=== PATIENT | male | born 1945 ===

== ENCOUNTER 2024-07-04 06:11 | Day surgery (SDC) | payer OTHER, SELFPAY ==
[2024-06-29 09:21] VITALS: BMI 41.0
[2024-06-29 09:56] LABS: % Basophils 1.3 % (0-2); % Eosinophils 2.8 % (0-6); % Immature Granulocytes 0.3 % (0-0.5); % Lymphocytes 30.6 % (20.5-51.1); % Monocytes 11.8 % (1.7-9.3); % Neutrophils 53.2 % (42.2-75.2); Absolute Basophils 0.1 10^3/uL (0-0.2); Absolute Eosinophils 0.2 10^3/uL (0-0.7); Absolute Lymphocytes 2.4 10^3/uL (1.2-3.4); Absolute Monocytes 0.9 10^3/uL (0.1-0.6); Absolute Neutrophils 4.1 10^3/uL (1.4-6.5); Hematocrit 40.5 % (39.0-52.0); Hemoglobin 13.6 g/dL (13.0-18.0); Mean Corp Hgb Conc. 33.6 g/dL (33.0-37.0); Mean Corpuscular Hgb 34.4 pg (27.0-31.0); Mean Corpuscular Volume 102.5 fL (80.0-94.0); Mean Platelet Volume 11.2 fL (7.4-10.4); Nucleated Red Blood Cells % 0 % (-); Platelet Count 172 10^3/uL (130-400); Red Blood Cell Count 3.95 10^6/uL (4.70-6.10); Red Cell Dist. Width 13.6 % (11.5-14.5); White Blood Cell Count 7.8 10^3/uL (4.8-10.8)
[2024-06-29 10:08] LABS: INR 0.96; PT 13.1 Sec (11.4-14.6)
[2024-06-29 11:02] LABS: Blood Urea Nitrogen 35 mg/dl (9-20); Calcium 10.3 mg/dl (8.4-10.2); Carbon Dioxide 22 mmol/L (22-30); Chloride 110 mmol/L (98-107); Estimated Creatinine Clearance 50 ml/min; Glucose 72 mg/dl (70-99); Potassium 4.7 mmol/L (3.5-5.1); Sodium 144 mmol/L (135-145); eGFR 46.48
--- NOTE | 2024-06-29 15:42 | PTCARENOTE ---
Patients 06/29 Creat-1.5; GFR-46.48, Saundra @ Dr. Brannon office notified of same
[2024-07-04] VITALS (23 sets, daily range): BP systolic 129–163; BP diastolic 47–126
--- NOTE | 2024-07-04 07:32 | W.SUR.PREOP ---
Pre-Operative Surgical Note
-
I have examined this patient prior to the performance of the scheduled procedure.
The patient's condition is unchanged from the time of the current History and
Physical and the patient is able to undergo the scheduled procedure.
[2024-07-04 07:35] LABS: Glucose - Point of Care 125 mg/dl (70-99)
[2024-07-04] MEDS: DILAUDID 0.25 MG IV (09:59)
[2024-07-04] MEDS: PLAVIX 150 MG PO (10:04)
[2024-07-04] MEDS: LOW STRENGTH ASPIRIN 81 MG PO (10:04)
[2024-07-04 10:05] LABS: Glucose - Point of Care 140 mg/dl (70-99)
[2024-07-04] MEDS: TYLENOL 650 MG PO (11:08)
[2024-07-04] MEDS: NSS 1000 IV (11:10)
--- NOTE | 2024-07-04 11:37 | OR.RPT ---
Operative Report
Operative Report
Date of Operation: 07/04/2024
Pre Op Diagnosis:
1. 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
2. Diabetes with peripheral arterial occlusive disease
Post Op Diagnosis:
1. 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
2. Diabetes with peripheral arterial occlusive disease
Procedure:
1.) intravascular lithotripsy to right posterior tibial artery occlusion (3 mm x 80 mm shockwave E8)
2.) balloon angioplasty of right mid and proximal anterior tibial artery stenosis (3 mm x 40 mm angioplasty balloon)
3.) diagnostic aortobiiliac arteriogram
4.) diagnostic right lower extremity arteriogram
5.) ultrasound-guided percutaneous access to the left common femoral artery
Surgeon: Brad Jordan III, MD
Chemical Production Machine Operator: Nini Soto MD PGY1
Anesthesia: Sedation with local
Fluoroscopy:
40.3 min
250 mGy
100.68 gy.cm2
Complications: None
Estimated Blood Loss: Less than 10 cc
History and Indications for Procedure: 79-year-old male with chronic limb threatening ischemia of the right lower extremity manifested by nonhealing toe ulcers.
Procedure in Detail: Kd Oliva was correctly identified and placed supine on the operating table. After adequate induction of anesthesia the bilateral groins were prepped and draped in the usual sterile fashion. A timeout was performed with
the nursing and anesthesia staff confirming the patient's identity as well as the nature and laterality of the procedure.
The left common femoral artery was identified under ultrasound guidance. The artery was patent. The superior and inferior aspects of the femoral head were identified with radiographic guidance and marked at the skin level. The proposed puncture site
was infiltrated with local anesthesia. Under ultrasound guidance we accessed the left common femoral artery with a micropuncture needle and upsized to a 5 Fr sheath over a [employer] wire. The wire and a [employer] hook flush catheter were advanced into
the distal abdominal aorta and a diagnostic aorto-biiliac arteriogram was performed:
AORTO-ILIAC ARTERIOGRAM:
Aorta: Diffusely and heavily calcified but patent with no significant stenosis identified
Right common iliac artery: Patent with no significant stenosis identified
Right external iliac artery: Patent with no significant stenosis identified
Left common iliac artery: Patent with no significant stenosis identified
Left external iliac artery: Patent with no significant stenosis identified
Under roadmap guidance using a Glidewire and the [employer] hook catheter we selected the right common iliac artery and then the external iliac artery. A catheter was tracked up and over the aortic bifurcation and placed in the distal external iliac
artery. A diagnostic right lower extremity arteriogram was then performed which demonstrated the following:
RIGHT LOWER EXTREMITY:
Common femoral artery: Patent with no significant stenosis identified
Profunda femoral artery: Patent with no significant stenosis identified
Superficial femoral artery: Patent with no significant stenosis identified
Popliteal artery: Patent with no significant stenosis identified
Anterior tibial artery: Patent. Focal high-grade stenoses in the mid and proximal anterior tibial artery
Tibioperoneal trunk: Patent
Peroneal artery: Patent
Posterior tibial artery: Patent proximally but occluded mid portion. Diffusely calcified. Reconstitutes distally at the ankle via posterior peroneal artery collaterals.
ENDOVASCULAR INTERVENTION: Systemic heparin was administered. Selected the right superficial femoral artery with the Storq wire. Exchanged out for a 5 Fr 70 cm sheath over a Storq wire. Selected the anterior tibial artery under roadmap guidance
with 0.035 SPEX catheter and glidewire. The proximal and mid AT stenoses were crossed. Exchanged out for a 0.014 wire. A 3 mm x 40 mm angioplasty balloon was used to treat the proximal and mid anterior tibial artery stenoses. The balloon was
inflated to nominal pressure at each treated segment and left in place for 2 minutes. Subsequent arteriogram demonstrated an excellent technical result with a widely patent anterior tibial artery, brisk flow and no significant residual stenosis
identified.
We then focused our attention on the posterior tibial artery. Under roadmap guidance using the right posterior tibial artery was selected with a Glidewire and the 035 catheter. We then exchanged out for a 0.014 wire and support catheter which were
then advanced through the occluded segment and into the reconstituted posterior tibial artery at the ankle. True lumen positioning was confirmed. The occlusion was predilated with a 2.5 mm angioplasty balloon. I then followed that with
intravascular lithotripsy to treat the entire occluded segment of the posterior tibial artery. Due to the calcified nature of the posterior tibial artery disease and in an effort to modify the calcium to achieve maximum luminal gain with
endovascular intervention I elected to proceed with intravascular lithotripsy. A 3 mm x 80 mm Shockwave balloon was placed across the stenosis under roadmap guidance. Alternating rounds of lithotripsy pulse delivery at sub-nominal pressure and
angioplasty at nominal pressure was performed across the stenosis. In between rounds of pulse delivery and angioplasty the balloon was deflated and repositioned under roadmap guidance. All 400 pulses were delivered.
COMPLETION ARTERIOGRAM: Excellent technical result. Brisk flow through a widely patent posterior tibial artery. The posterior tibial artery had a focal area of spasm distal to our treated segment, near the ankle. The posterior tibial artery
continued across the ankle to form plantar branches in the foot. Anterior tibial artery widely patent which continued across the ankle to form the dorsalis pedis artery.
Satisfied with this result we concluded the procedure. Protamine was administered. The sheath tip was pulled back into the left external iliac artery. The sheath was secured in place with the plan to pull it in the recovery room.
The patient tolerated the procedure well and was taken to the recovery area in stable condition.
Attestation: I was present and responsible for the entire procedure.
Signed:
Brad Jordan III, MD
Vascular Surgery
[facility]
== END 2024-07-04 15:05 | disposition home or self-care (01) ==
LOC: CATH 06:11
PROVIDERS: ATTENDING PHYSICIAN Surgery Vascular Surgery; OTHER PHYSICIAN Student in an Organized Health Care Education/Training Program; PRIMARYCARE PHYSICIAN Family Medicine
DX: E11.51 Type 2 diabetes mellitus with diabetic peripheral angiopathy without gangrene (principal); L97.519 Non-pressure chronic ulcer of other part of right foot with unspecified severity; I70.235 Atherosclerosis of native arteries of right leg with ulceration of other part of foot; Z88.8 Allergy status to other drugs, medicaments and biological substances
CPT/HCPCS: C9772; 36415; 75625; 75716; 80048; 82962; 85025; 85610; 85730; 93005; C1725; C1769; C1894; Q9967

== ENCOUNTER → 2025-01-10 11:07 | Outpatient (REF) | payer MEDICARE, OTHER, SELFPAY | LOC: RAD 11:07 | PROVIDERS: ATTENDING PHYSICIAN Registered Nurse; FAMILY PHYSICIAN Family Medicine | DX: I70.235 Atherosclerosis of native arteries of right leg with ulceration of other part of foot (principal) | CPT/HCPCS: 93922 ==